=== PATIENT | male | born 1935 | race Caucasian/White ===

== ENCOUNTER 2020-03-14 12:02 | Day surgery (SDC) | payer MEDICARE ==
[2020-03-14] VITALS (10 sets, daily range): BP systolic 107–174; BP diastolic 74–97; PULSE 70–95; TEMP 97.6–98
[~2020-03-14] VITALS: Ht 172.7 cm; Wt 68.2 kg
[2020-03-14] MEDS ORDERED: TYLENOL 500MG500 MG PO (13:13)
[2020-03-14] MEDS ORDERED: ELIQUIS 5MG PO (13:14)
[2020-03-14] MEDS ORDERED: COREG 6.256.25 MG/TA PO (13:15)
[2020-03-14] MEDS ORDERED: LIPITOR 10MG10 MG PO (13:15)
[2020-03-14] MEDS ORDERED: SYNTHROID 0.0.025 MG PO (13:16)
[2020-03-14] MEDS ORDERED: LASIX 40MG TABL40 MG PO (13:16)
[2020-03-14] MEDS ORDERED: ZESTRIL40 MG PO (13:17)
[2020-03-14] MEDS ORDERED: ALDACTONE 25MG25 M1 PO (13:17)
--- NOTE | 2020-03-14 23:21 | NUR ---
PT RESTING IN BED, DENIES CHARITO PAIN, VSS. CONDOM CATH REMAIN IN PLACE. PT DENIES ANY SOA. WILL CONTINUE TO MONITOR PT STATUS AND UPDATE MD NEEDED.
[2020-03-15 04:57] VITALS: BP 101/75; PULSE 70; TEMP 98.2
[2020-03-15 07:47] VITALS: BP 143/91; PULSE 78; TEMP 97.5
--- NOTE | 2020-03-15 10:36 | NUR ---
REPORT CALLED TO [facility]. PT TRANSPORTATION BY FACILITY.
--- NOTE | 2020-03-15 12:55 | NUR ---
Vacuum Caster was notified by NUSRAT Vallejo that patient has discharge orders and is ready to return to [facility] in [place]. AARON contacted AARON Prince at [facility] and set transport time, which was provided to NUSRAT Vallejo. AARON met with patient who advised he has lived at [facility] for a while now and that he sees Dr. Landeros for primary care. Patient states staff at [facility] assist him with medications and all ADLS. Patient states staff makes sure he doesn't fall down. AAORN provided transport time to patient who states he is ready to get back to [facility]. AARON contacted patient's AL[facility] (ph#[phone]) to provide transport time. AARON faxed discharge orders to Niki at [facility]. No additional needs at this time.
== END 2020-03-15 10:37 ==
LOC: SDCO 12:02 → JCC 15:00 → SDCO 03-15 10:37
DX: N32.89 Other specified disorders of bladder (principal); I11.0 Hypertensive heart disease with heart failure; I50.9 Heart failure, unspecified; I48.91 Unspecified atrial fibrillation; E78.5 Hyperlipidemia, unspecified; Z79.01 Long term (current) use of anticoagulants; E03.9 Hypothyroidism, unspecified; D64.9 Anemia, unspecified; F03.90 Unspecified dementia, unspecified severity, without behavioral disturbance, psychotic disturbance, mood disturbance, and anxiety
CPT/HCPCS: OP; J0690; J2704; J3010; J7120